=== PATIENT | female | born 1980 | race Caucasian/White ===

== ENCOUNTER → 2016-10-27 | Emergency (ER) | payer SELFPAY ==
[~2016-10-27] VITALS: Ht 165.1 cm; Wt 80.0 kg
[~2016-10-27] MED LIST: CEPH-443 PO; CEPHALEXIN 500 MG CAP PO ONE; HYDR-902 PO; HYDROmorphONE 1 MG/ML SYG IV STA; KETOROLAC 30 MG INJ IV STA; ONDA4TAB14 PO; ONDANSETRON 4 MG INJ IV STA; SOD CHLORIDE 0.9% 1,000 ML IV STA
[2016-10-27 18:33] VITALS: Ht 165.1 cm; Wt 80.0 kg
[2016-10-27 19:05] LABS: ADD SCAN DIFF NO
[2016-10-27 19:07] LABS: ABNORMAL IP MESSAGE 1; HEMATOCRIT 28.3 % (37.0-47.0); HEMOGLOBIN 7.3 g/dl (12.0-16.0); MEAN CORPUSCULAR HEMOGLOBIN 14.6 pg (29.0-33.0); MEAN CORPUSCULAR HGB CONC 25.8 g/dl (32.0-37.0); MEAN CORPUSCULAR VOLUME 56.7 fl (82.0-101.0); PLATELET COUNT 104 10^3/UL (140-415); RED BLOOD COUNT 4.99 10^6/ul (4.20-5.40); RED CELL DISTRIBUTION WIDTH 23.6 % (11.5-14.5); WHITE BLOOD COUNT 10.9 10^3/ul (4.8-10.8)
[2016-10-27 19:20] LABS: ADD UMIC YES; URINE BILIRUBIN (Dip) NEGATIVE (NEGATIVE); URINE BLOOD (Dip) NEGATIVE (NEGATIVE); URINE COLOR LT. YELLOW (YELLOW); URINE GLUCOSE (Dip) NEGATIVE (NEGATIVE); URINE KETONES (Dip) NEGATIVE (NEGATIVE); URINE LEUKOCYTE ESTERASE (Dip) 1+ (NEGATIVE); URINE NITRITE (Dip) NEGATIVE (NEGATIVE); URINE TOTAL PROTEIN (Dip) NEGATIVE (NEGATIVE); URINE UROBILINOGEN (Dip) 0.2 E.U./dL (0.1-1.0)
[2016-10-27 19:35] LABS: BACTERIA,URINE FEW; SQUAMOUS EPITHELIAL CELL,UR MANY; URINE RBCS NONE SEEN /HPF (0)
[2016-10-27 19:44] LABS: POTASSIUM 4.3 mmol/L (3.5-5.1)
[2016-10-27 19:46] LABS: CREATININE 0.65 mg/dl (0.44-1.00)
[2016-10-27 19:47] LABS: ALBUMIN/GLOBULIN RATIO 1.33; CALCIUM 9.5 mg/dl (8.4-10.2)
--- NOTE | 2016-10-27 20:18 | RADRPT ---
PROCEDURE: CT abdomen and pelvis without intravenous contrast. CLINICAL INDICATION: Pain. TECHNIQUE: CT of the abdomen/pelvis was performed utilizing axial images with reconstructions in s agittal and coronal planes. The administered radiation dose is CTDI 22 mGy, DLP 1217 mGy-cm. COMPARISON: No pertinent prior examinations were submitted for comparison. FINDINGS: Visualized Chest: The visualized lung bases are clear. Abdomen: The liver,pancreas, and adrenal glands are unremarkable. Prior cholecystectomy is noted. There is mild splenomegaly. The kidneys are without hydronephrosis. No definite urinary calculi are seen. Prior gastric bypass is noted. There is no evidence of bowel obstruction. The appendix is normal. No intra-abdominal free air is seen. There is no evidence of intra-abdominal adenopathy or free fluid. Pelvis: The right ovary is mildly enlarged, measuring 3.4 x 3.6 x 4.3 cm. The right ovary is positioned some what superiorly within the right abdomen. The uterus and left ovary are unremarkable. No pelvic magda nopathy or free fluid is seen. The urinary bladder is unremarkable. Osseous structures: Unremarkable. IMPRESSION: No acute findings. Status post cholecystectomy and gastric bypass without evidence of bowel obstruction. Mild enlargement the right ovary. If clinically warranted, this can be further evaluated with ultra sound. The ovary is positioned somewhat superiorly in the right abdomen and may be difficult to visu clarissa on transvaginal ultrasound. RPTAT: HIKT .Jesus Marcum MD, Date Time Electronically viewed and signed by .Jesus Marcum MD, on 10/27/2016 20:17 .T/
[2016-10-27 20:52] VITALS: BP 130/63; PULSE 93; RESP 18; TEMP 98.3
--- NOTE | 2016-10-27 21:25 | ERD ---
ER Documentation Chief Complaint Date/Time DATE: 10/27/16 TIME: 21:22 Chief Complaint right side pain X4 days, no trauma HPI Patient is a 36-year-old female presents with right-sided flank pain. She has had flank pain for the past 2 days. She feels bloating. She denies nausea or vomiting. She has no fevers. She says it is a sharp and stabbing type pain which comes and goes in the right flank. She does have a primary doctor. She does have Balfour at home but it did not help. ROS All systems reviewed and are negative except as per history of present illness. Medications Home Meds Active Scripts Ondansetron (Ondansetron Odt) 4 Mg Tab.rapdis, 4 MG PO Q6H Y for NAUSEA AND/OR VOMITING, #30 TAB Prov:AYDIN RODRIGUEZ MD 10/27/16 Hydrocodone/Acetaminophen (Balfour 10-325 Tablet) 1 Each Tablet, 1 TAB PO Q6H Y for PAIN, #7 TAB Prov:AYDIN RODRIGUEZ MD 10/27/16 Cephalexin* (Keflex*) 500 Mg Capsule, 500 MG PO QID for 7 Days, CAP Prov:AYDIN RODRIGUEZ MD 10/27/16 Allergies Allergies: Coded Allergies: Penicillins (Verified Allergy, Unknown, 10/27/16) PMhx/Soc History of Surgery: Yes (stacie, x 2, gastric bypass) Anesthesia Reaction: No Hx Neurological Disorder: No Hx Respiratory Disorders: No Hx Cardiac Disorders: No Hx Psychiatric Problems: No 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 Neck: Full range of motion..~ No meningismus. Resp: Clear to auscultation bilaterally Cardio: Regular rate and rhythm, no murmurs Abd: Soft, non tender, non distended. Normal bowel sounds Skin: No petechiae or rashes Back: Right-sided flank pain with palpation Ext: No cyanosis, or edema Neur: Awake and alert Psych: Normal Mood and Affect Result Diagram: 10/27/16185510/27/161855 Results 24 hrs Laboratory Tests Test 10/27/16 18:56 10/27/16 19:09 White Blood Count 10.910^3/ul Red Blood Count 4.9910^6/ul Hemoglobin 7.3g/dl Hematocrit 28.3% Mean Corpuscular Volume 56.7fl Mean Corpuscular Hemoglobin 14.6pg Mean Corpuscular Hemoglobin Concent 25.8g/dl Red Cell Distribution Width 23.6% Platelet Count 01129^3/UL Mean Platelet Volume fl Sodium Level 140mmol/L Potassium Level 4.3mmol/L Chloride Level 106mmol/L Carbon Dioxide Level 25mmol/L Anion Gap 13 Blood Urea Nitrogen 7mg/dl Creatinine 0.65mg/dl Glucose Level 101mg/dl Calcium Level 9.5mg/dl Total Bilirubin 0.0mg/dl Direct Bilirubin 0.00mg/dl Indirect Bilirubin 0.0mg/dl Aspartate Amino Transf (AST/SGOT) 16IU/L Alanine Aminotransferase (ALT/SGPT) 19IU/L Alkaline Phosphatase 91IU/L Total Protein 7.0g/dl Albumin 4.0g/dl Globulin 3.00g/dl Albumin/Globulin Ratio 1.33 Lipase 194U/L Urine Color LT. YELLOW Urine Clarity SLIGHTLY CLOUDY Urine pH 6.0 Urine Specific Minier 1.010 Urine Ketones NEGATIVE Urine Nitrite NEGATIVE Urine Bilirubin NEGATIVE Urine Urobilinogen 0.2 E.U./dL Urine Leukocyte Esterase 1+ Urine Microscopic RBC NONE SEEN/HPF Urine Microscopic WBC 5-10/HPF Urine Squamous Epithelial Cells MANY Urine Bacteria FEW Urine Yeast FEW Urine Hemoglobin NEGATIVE Urine Glucose NEGATIVE% Urine Total Protein NEGATIVE Current Medications Medications (Trade) Dose Ordered Sig/Jimi Route PRN Reason Start Time Stop Time Status Last Admin Dose Admin Sodium Chloride (NS) 1,000 ml @ 1,000 mls/hr Q1H STAT IV 10/27/16 18:31 10/27/16 19:30 DC 10/27/16 19:01 Hydromorphone HCl (Dilaudid) 1 mg ONCE STAT IV 10/27/16 18:31 10/27/16 18:32 DC 10/27/16 19:00 Ondansetron HCl (Zofran Inj) 4 mg ONCE STAT IV 10/27/16 18:31 10/27/16 18:32 DC 10/27/16 18:54 Ketorolac Tromethamine (Toradol) 30 mg ONCE STAT IV 10/27/16 18:31 10/27/16 18:32 DC 10/27/16 19:25 Hydromorphone HCl (Dilaudid) 1 mg ONCE STAT IV 10/27/16 19:56 10/27/16 19:57 DC 10/27/16 20:01 Cephalexin (Keflex) 500 mg ONCE ONCE PO 10/27/16 20:00 10/27/16 20:01 DC 10/27/16 20:22 Procedures/MDM CT scan shows no acute process per radiology. Patient is a 36-year-old female presents with right-sided flank pain. CT scan showed no sign of obstruction or kidney stone. The patient does have a urinary tract infection and I do believe this is likely a pyelonephritis. The patient feels better after Dilaudid, Toradol, and fluids. She was given Keflex for infection. The patient will be given a prescription for Keflex. She can return for any worsening symptoms. At this point I believe outpatient management is appropriate. She feels much better. She was offered Balfour but was requesting oxycodone. I do not prescribe oxycodone from the ER and she said that she has Balfour at home. The patient can return for any worsening symptoms. I doubt appendicitis, cholecystitis, pancreatitis, or bowel obstruction. She should follow-up with the primary doctor within 24 hours and can return if symptoms worsen. The patient does have anemia but at this point I do not believe the patient acquired transfusion and I believe outpatient management is appropriate. Departure Diagnosis: Primary Impression: Flank pain Additional Impressions: Pyelonephritis Anemia Anemia type: unspecified type Qualified Code: D64.9 - Anemia, unspecified type Condition: Fair Patient Instructions: Flank Pain, Uncertain Cause, Pyelonephritis, Female ( Adult) Referrals: Dr. Powell Additional Instructions: FOLLOW UP WITH YOUR PRIMARY CARE PHYSICIAN TOMORROW.Return to this facility if you are not improving as expected. AYDIN RODRIGUEZ MD Oct 27, 2016 21:25
[2016-10-27 21:27] LABS: ANISOCYTOSIS 2+; BASOPHIL # 0.1 10^3/ul (0.0-0.1); HYPOCHROMASIA 1+; LYMPHOCYTES # 2.3 10^3/ul (0.8-2.9); MICROCYTOSIS 2+; MONOCYTE # 0.8 10^3/ul (0.3-0.9); NEUTROPHIL # 7.7 10^3/ul (1.6-7.5)
== END | disposition home or self-care (01) ==
LOC: FTE 18:29
DX: R10.9 Unspecified abdominal pain (principal); N12 Tubulo-interstitial nephritis, not specified as acute or chronic; D64.9 Anemia, unspecified
CPT/HCPCS: 36415; 74176; 80053; 81001; 81003; 83690; 85025; 96374; 96375; 96376; 99285; J1170; J1885; J2405; J7030